=== PATIENT | male | born 1995 | race Asian ===

== ENCOUNTER 2020-07-18 14:43 | Emergency (ER) | payer OTHER ==
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
[2020-07-18] MEDS ORDERED: IBUPROFEN 600 MG TABLET PO STA (15:56)
[2020-07-18] MEDS ORDERED: ACETAMINOPHEN 325 MG TABLET PO STA (15:56)
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
[2020-07-18 17:04] VITALS: BP 128/78
== END 2020-07-18 17:03 | disposition home or self-care (01) ==
LOC: ED 14:43
DX: S86.912A Strain of unspecified muscle(s) and tendon(s) at lower leg level, left leg, initial encounter (principal); S80.02XA Contusion of left knee, initial encounter; V43.52XA Car driver injured in collision with other type car in traffic accident, initial encounter; Y92.411 Interstate highway as the place of occurrence of the external cause
CPT/HCPCS: 73590; 99282; 99283; A9270